=== PATIENT | male | born 1975 ===

== ENCOUNTER 2024-04-23 11:05 | Emergency (ER) | payer SELFPAY ==
[2024-04-23 11:35] VITALS: BP 168/97; PULSE 78; RESP 19; TEMP 36.8; O2SAT 99; BMI 29.5
--- NOTE | 2024-04-23 11:40 | EDNOTE_ITS ---
<Statement entered by Toshia Franklin MD - 04/30/24 16:15> As co-signing physician, I was present and available for consult prn. I concur with the plan and care as documented by the midlevel provider. ED General RME/HPI General Chief complaint: Weakness Stated complaint: RIGHT SIDE FACE WEAKNESS Time Seen by Provider: 04/23/24 11:39 Arrival date/time: 04/23/24 11:05 CC: Right-sided facial droop onset 24 hours ago, the patient had facial droop, and inability to close his eye patient also has lost taste and has some mild face pain patient denies fever chills nausea vomiting headache shortness of breath difficulty breathing no prior history of similar events. Patient has no other focal deficits. Related Data Previous Rx's ?Medication ?Instructions ?Recorded prednisone 20 mg tablet See Taper PO BID 3 days #6 tabs 04/23/24 Allergies Allergy/AdvReac Type Severity Reaction Status Date / Time Penicillins Allergy Mild Swelling Verified 04/23/24 11:08 of Lip/Tongue/Throat Review of Systems Review of Systems Narrative Review of Systems: GEN: No fever, no chills, no weight loss EYES: No discharge, no visual changes, no pain HEENT: No ear pain, no congestion, no sore throat PULM: No shortness of breath, no cough, no congestion CV: No chest pain, no dyspnea on exertion, no palpitations GI: No nausea, no vomiting, no diarrhea, no pain, no constipation : No frequency, no urgency, no dysuria MUSC/SKEL: No joint pain, no back pain SKIN: No rash PSYCH: No hallucinations, no depression HEME/LYMPH: No easy bleeding or bruising tendencies NEURO:Rt fcial weakness, no headache ED Exam Narrative Physical exam: [General: Not in any acute distress Head normocephalic HEENT: Pupils PERRLA EOMs intact. Ptosis of the right eyelid. Mouth right corner mouth droop. All other subsystems within acceptable limits Neck is supple nontender Chest equal chest rise nontender to palpation Respiratory: Clear to auscultation no wheezes crackles or rubs CV: Rate rhythm is regular no murmurs rubs or clicks Abdomen is distended secondary to body habitus soft nontender no masses positive bowel sounds all 4 quadrants Back: No CVA tenderness no spinous process tenderness from cervical spine thoracic and lumbar spine Skin: Intact no petechiae rash induration ulceration or crepitus Extremities: Moving all extremity against resistance cap refill less than 2 seconds neurosensory intact Neuro: Awake alert oriented x3 7th cranial nerve deficits, ptosis of the right eye right facial droop Course Quality Measures none Vital Signs Vital signs: Vital Signs Temperature 98.2 F 04/23/24 11:35 Pulse Rate 78 04/23/24 11:35 Respiratory Rate 19 04/23/24 11:35 Blood Pressure 168/97 H 04/23/24 11:35 Pulse Oximetry (%) 99 04/23/24 11:35 Oxygen Delivery Method Room Air 04/23/24 11:35 MDM Patient data External records reviewed:: [facility] previous records Clinical information provided by:: patient Social determinants that could affect healthcare access:: none Patient has the following chronic illnesses:: None How is presenting disease/condition affected by chronic disease/condition?: uneffected by Evaluation data The following diagnostics were reviewed and interpreted by me:: other (specify) (None) Lab and/or radiology exams considered but not ordered:: None Interpretation Summary: Shin's palsy Medications Medications considered but not ordered:: None Medication administrations:: None Consultations Consultation(s) initiated? (list below): No Diagnosis Differential Diagnosis ED Complaint MDM: CVA TIA Shin's palsy Most likely diagnosis given after review of the tests above:: Shin's palsy Admission Indicated Admission indicated?: not indicated Explain why admission is indicated or not indicated:: Stable for discharge Admission Request Was there a request for admission?: No Disposition Plan Disposition Plan: Discharge Discharge Attestation Discharge Attestation: The patient and all family members were given an opportunity to ask questions and understood the discharge instructions. Discharge instructions specifically effects, indications for sooner follow up or return to the emergency department, and the expected course of current diagnosis. Patient condition: Stable Medical Decision Making Differential Diagnosis Differential Diagnosis: CVA TIA Shin's palsy Discharge Plan Plan Patient Disposition: HOME (Self Care) Patient condition on transfer: Stable Prescriptions/Referrals Prescriptions/Med Rec: New prednisone 20 mg tablet See Taper PO BID 3 Days Qty: 6 0RF Taper: Prednisone Taper 20 mg DAILY for 2 Days and 0 Hour 10 mg DAILY for 2 Days and 0 Hour 5 mg DAILY for 7 Days and 0 Hour Problem List Clinical Impression: Shin's palsy Patient/Caregiver Discharge Instructions Education Materials: ED Shin's Palsy Print Language: Lithuanian Stand Alone Forms: Shanice Award Info., Patient Portal Info Letter PA/[employer]MENT [employer]ER Supervising Physician PA/[employer]LECT[employer]QU[employer]MENT ASSEM[employer]ER Supervising Physician: Olayinka Santo ENP
== END 2024-04-23 19:07 | disposition home or self-care (01) ==
PROVIDERS: Emergency Provider Emergency Medicine
DX: G51.0 Bell's palsy (principal)
CPT/HCPCS: 99281